=== PATIENT | female | born 1970 | race Caucasian/White ===

== ENCOUNTER 2017-10-02 21:42 | Emergency (ER) | payer BC ==
[~2017-10-02] VITALS: Ht 172.7 cm; Wt 81.7 kg
[2017-10-02] MEDS ORDERED: LEVO-T25 MCG (23:02)
[2017-10-02] MEDS ORDERED: WARF4 PO ×2 (23:23→23:29)
[2017-10-02] MEDS ORDERED: Omeprazole20 M1 (23:23)
[2017-10-02] MEDS ORDERED: ALBU90OI61 INH (23:23)
[2017-10-02] MEDS ORDERED: Dyazide 37.5-21 EACH PO (23:29)
[2018-05-09] MEDS ORDERED: LOSARTAN POTASS50 MG PO (10:17)
[2018-05-09] MEDS ORDERED: XARELTO10 MG PO (10:17)
[2018-05-09] MEDS ORDERED: Synthroid25 MCG PO (10:18)
== END 2017-10-02 23:35 | disposition home or self-care (01) ==
LOC: ER 21:42
DX: M25.461 Effusion, right knee (principal); E03.9 Hypothyroidism, unspecified
CPT/HCPCS: 73562-RT; 99283

== ENCOUNTER → 2018-01-04 | Outpatient (CLI) | payer BC ==
[~2018-01-04] MED LIST: ALBU90OI61 INH; Dyazide 37.5-21 EACH PO; LEVO-T25 MCG; Omeprazole20 M1; WARF4 PO
== END ==
LOC: LAB SHORT 18:59 → LAB 18:59
DX: R19.7 Diarrhea, unspecified (principal)
CPT/HCPCS: 87077; 87086; 87186

== ENCOUNTER 2018-05-16 12:01 | Day surgery (SDC) | payer BC ==
[~2018-05-16] VITALS: Ht 172.7 cm; Wt 84.8 kg
[~2018-05-16 12:01] MED LIST changes: +LOSARTAN POTASS50 MG PO; +Synthroid25 MCG PO; +XARELTO10 MG PO
== END 2018-05-16 16:56 | disposition home or self-care (01) ==
LOC: ORSCSDS 12:01
PROVIDERS: Orthopaedic Surgery
PROC: 0MNN4ZZ Release Right Knee Bursa and Ligament, Percutaneous Endoscopic Approach (ICD-10-PCS; principal; 2018-05-16 13:30)
PROC: 0SBC4ZZ Excision of Right Knee Joint, Percutaneous Endoscopic Approach (ICD-10-PCS; principal; 2018-05-16 13:30)
DX: S83.281A Other tear of lateral meniscus, current injury, right knee, initial encounter (principal); M94.261 Chondromalacia, right knee; I10 Essential (primary) hypertension; E03.9 Hypothyroidism, unspecified; Z79.899 Other long term (current) drug therapy
CPT/HCPCS: J0171; J0690; J1100; J2250; J2405; J2795; J3010; J7120

== ENCOUNTER 2018-08-29 07:41 | Day surgery (SDC) | payer BC ==
[~2018-08-29] VITALS: Ht 172.7 cm; Wt 88.6 kg
== END 2018-08-29 11:09 | disposition home or self-care (01) ==
LOC: ORSCSDS 07:41
PROVIDERS: Orthopaedic Surgery
PROC: 0MNP4ZZ Release Left Knee Bursa and Ligament, Percutaneous Endoscopic Approach (ICD-10-PCS; principal; 2018-08-29 08:45)
DX: M23.92 Unspecified internal derangement of left knee (principal); M22.42 Chondromalacia patellae, left knee; M94.262 Chondromalacia, left knee; I10 Essential (primary) hypertension; E03.9 Hypothyroidism, unspecified; Z79.899 Other long term (current) drug therapy
CPT/HCPCS: J0171; J0690; J1100; J1885; J2405; J2795; J3010; J7120

== ENCOUNTER → 2019-04-18 | Outpatient (CLI) | payer BC | END | disposition home or self-care (01) | LOC: PLD 11:41 → LAB SHORT 11:41 | DX: D22.4 Melanocytic nevi of scalp and neck (principal) | CPT/HCPCS: 88305 ==

== ENCOUNTER 2020-08-13 12:57 | Emergency (ER) | payer BC ==
[~2020-08-13] VITALS: Ht 167.6 cm; Wt 83.9 kg
[2020-08-13 13:20] LABS: Calcium, Ionized (POC) 1.08 mmol/L (1.10-1.46); Chloride (POC) 106 mmol/L (98-108); Creatinine (POC) 0.7 mg/dL (0.6-1.0); Glucose (ISTAT POC) 95 mg/dL (70-99); Potassium (POC) 3.6 mmol/L (3.5-5.5); Sodium (POC) 139 mmol/L (135-148); Total CO2 (POC) 25 mmol/L (21-32)
== END 2020-08-13 14:52 | disposition home or self-care (01) ==
LOC: ER 12:57
PROVIDERS: Emergency Medicine
DX: I47.1 Supraventricular tachycardia (principal); E03.9 Hypothyroidism, unspecified; Z79.01 Long term (current) use of anticoagulants; Z79.899 Other long term (current) drug therapy
CPT/HCPCS: 80047; 85014; 93005; 93010; 96360; 99285-25; J0153; J7030

== ENCOUNTER 2021-12-16 13:28 | Day surgery (SDC) | payer BC ==
[~2021-12-16] VITALS: Ht 172.7 cm; Wt 88.4 kg
[2021-12-16] MEDS ORDERED: KAPSPARGO SPRIN25 MG PO (13:59)
== END 2021-12-16 16:25 | disposition home or self-care (01) ==
LOC: ORSCSDS 13:28
PROVIDERS: Internal Medicine Gastroenterology
PROC: 0DBL8ZX Excision of Transverse Colon, Via Natural or Artificial Opening Endoscopic, Diagnostic (ICD-10-PCS; principal; 2021-12-16 15:15)
PROC: 0DBM8ZX Excision of Descending Colon, Via Natural or Artificial Opening Endoscopic, Diagnostic (ICD-10-PCS; principal; 2021-12-16 15:15)
PROC: 0DBK8ZX Excision of Ascending Colon, Via Natural or Artificial Opening Endoscopic, Diagnostic (ICD-10-PCS; principal; 2021-12-16 15:15)
DX: Z12.11 Encounter for screening for malignant neoplasm of colon (principal); D12.2 Benign neoplasm of ascending colon; D12.4 Benign neoplasm of descending colon; D68.51 Activated protein C resistance; I10 Essential (primary) hypertension; K21.9 Gastro-esophageal reflux disease without esophagitis; Z86.718 Personal history of other venous thrombosis and embolism; Z79.01 Long term (current) use of anticoagulants; E03.9 Hypothyroidism, unspecified; J45.909 Unspecified asthma, uncomplicated; Z79.899 Other long term (current) drug therapy
CPT/HCPCS: 88305; J0330; J0461; J2405; J2704; J7040; J7120

== ENCOUNTER 2022-01-11 06:23 | Day surgery (SDC) | payer BC ==
[~2022-01-11] VITALS: Ht 172.7 cm; Wt 89.8 kg
[~2022-01-11 06:23] MED LIST changes: +KAPSPARGO SPRIN25 MG PO
--- NOTE | 2022-01-11 08:28 | NUR ---
01/11/22 0828 Reny Borden 100MLS OF JOINT COCKTAIL INJECTED AT [facility] BY .
--- NOTE | 2022-01-11 10:20 | NUR ---
01/11/22 1020 NOEMI CREWS RN EXPLAINED TO PT AND ROZ ABOUT TOE TOUCH WEIGHT BEARING. PT AND VERBALIZED UNDERSTANDING, SAID THEY HAVE CRUTCHES AT HOME TO USE. PT DC VIA WHEELCHAIR TO GO HOME WITH [facility]A- BELONGINGS TAKEN OUT WITH [facility]A
== END 2022-01-11 10:20 | disposition home or self-care (01) ==
LOC: ORSCSDS 06:23
PROVIDERS: Orthopaedic Surgery
PROC: 0LMJ0ZZ Reattachment of Right Hip Tendon, Open Approach (ICD-10-PCS; principal; 2022-01-11 07:30)
PROC: 0MBL0ZZ Excision of Right Hip Bursa and Ligament, Open Approach (ICD-10-PCS; principal; 2022-01-11 07:30)
DX: S76.011A Strain of muscle, fascia and tendon of right hip, initial encounter (principal); I10 Essential (primary) hypertension; E03.9 Hypothyroidism, unspecified; K21.9 Gastro-esophageal reflux disease without esophagitis; Z86.718 Personal history of other venous thrombosis and embolism; Z79.01 Long term (current) use of anticoagulants; D68.51 Activated protein C resistance; Z79.899 Other long term (current) drug therapy
CPT/HCPCS: A9270; C1713; J0690; J1100; J1885; J2250; J2370; J2405; J2704; J3010; J7120

== ENCOUNTER → 2022-07-01 | Outpatient (CLI) | payer BC | LOC: PLD 11:59 → LAB SHORT 11:59 | DX: D22.39 Melanocytic nevi of other parts of face (principal); D22.5 Melanocytic nevi of trunk; D22.62 Melanocytic nevi of left upper limb, including shoulder | CPT/HCPCS: 88305 ==

== ENCOUNTER → 2022-07-12 | Outpatient (CLI) | payer BC ==
[2022-07-13 10:43] LABS: Hematocrit 48.5 % (33.0-51.0); Hemoglobin 15.3 g/dL (11.5-16.0); Mean Corpuscular HGB 30.5 pg (26.0-34.0); Mean Corpuscular HGB Conc 31.5 g/dL (31.5-36.5); Mean Corpuscular Volume 97 fL (80-100); Mean Platelet Volume 10.6 fL (9.1-12.4); Platelet Count 307 K/mm3 (150-400); RDW Coefficient Variation 13.1 % (11.7-14.2); RDW Standard Deviation 46.8 fL (35.1-46.3); Red Blood Cell Count 5.02 M/mm3 (3.80-5.20); White Blood Cell Count 6.57 K/mm3 (4.00-11.30)
== END ==
LOC: LAB SHORT 07:46 → LAB 07:46
PROVIDERS: Nurse Practitioner Family
DX: I10 Essential (primary) hypertension (principal); E03.9 Hypothyroidism, unspecified; N95.9 Unspecified menopausal and perimenopausal disorder; E55.9 Vitamin D deficiency, unspecified; R53.83 Other fatigue; R68.82 Decreased libido; Z79.890 Hormone replacement therapy; R87.1 Abnormal level of hormones in specimens from female genital organs; E23.0 Hypopituitarism
CPT/HCPCS: 85027

== ENCOUNTER 2022-11-17 10:27 | Day surgery (SDC) | payer BC ==
[~2022-11-17] VITALS: Ht 172.7 cm; Wt 85.4 kg
[~2022-11-17 10:27] MED LIST changes: +Adipex-P37.5 MG PO; +LIOT5 PO; +PROG100 PO; +RYBELSUS3 MG PO; +TOPROL XL25 MG PO; +VITAMIN D5000 UNIT PO
--- NOTE | 2022-11-17 11:33 | NUR ---
Ambulatory in Day Surgery. History, Chart, Medications and Allergies reviewed before start of procedure.Lungs clear T/O to Auscultation. Patient confirms NPO status and agrees with scheduled surgery. Pre-Op teaching done. Pt verbalizes understanding. Patient States Post-Procedure ride home has been arranged.
--- NOTE | 2022-11-17 16:42 | NUR ---
PATIENT TO SURG 217 POST LAP HYSTERECTOMY. VITAL SIGNS WNL. POST OP VITALS IN PROGRESS. COMPLAINS OF 8/10 ABDOMINAL PAIN. MEDICATED PER EMAR WITH PAIN RELIEF. DENIES N/V. 3 INCISIONS TO ABDOMIN, WNL. NO SIGNS OF BLEEDING. PER PAD IN PLACE. NO SIGNS OF BLEEDING AT THIS TIME. PATIENT EATING JELLO AND ICE CREAM. DRINKING WATER. AT BEDSIDE. WILL CONTINUE TO MONITOR.
--- NOTE | 2022-11-17 17:22 | NUR ---
PATIENT PAIN REDUCED AND CURRENTLY 4/10. UP TO BATHROOM TO VOID WITH SBA. 200ML OUTPUT OF NATE CLEAR URINE. DENIES NAUSEA. EATING ICE CREAM, AND CRACKERS AT THIS TIME. DRINKING WATER. PO PAIN MEDS GIVEN PER EMAR. INCISIONS WNL. NO VAGINAL BLEEDING AT THIS TIME. REMAINS AT BEDSIDE. POST OP VITALS IN PROGRESS AND CONTINUE TO BE STABLE.
--- NOTE | 2022-11-17 20:26 | NUR ---
SHIFT ASSESSMENT: PT PODx0 ROBOTIC LAP HYSTERECTOMY. PER PATIENT, VERY MINIMAL VAGINAL BLEEDING. PAD AND MESH UNDERWEAR CHANGED INDEPENDENTLY. PT REPORTS PAIN IS WELL MANAGED PER EMAR ORDERS WITH ORAL MEDICATION. TOLERATING PO FLUIDS AND FOOD. DENYING N/V. REPORTS INDEPENDENT TO BATHROOM AND IS STEADY ON HER FEET. VSS. EATING, DRINKING, VOIDING. PT HAS BEEN MEDICATED FOR PAIN. REPORTS THAT HER WILL BE HERE TO TRANSPORT HER HOME. X3 LAP SITES C/D/I AT THIS TIME. HEART AND LUNG SOUNDS WNL. REPORTS MINIMAL GAS SENSATION IN STOMACH. PT READY TO DISCHARGE HOME. WILL PRINT OUT PAPERWORK.
--- NOTE | 2022-11-17 20:45 | NUR ---
DISCHARGE: PT WAS DISCHARGED. DC INSTRUCTIONS AND INFO COMPLETED MY CHARGE NURSE. PT TAKEN TO PRIVATE VEHICLE VIA WHEELCHAIR BY IT SECURITY PROJECT MANAGER. PT EATING, DRINKING, VOIDING. DENIES N/V. REPORTS PAIN CONTROL. VERIFIED THAT PRESCRIPTIONS HAVE BEEN FILLED. TO TAKE PT HOME IN PRIVATE VEHICLE.
== END 2022-11-17 20:45 | disposition home or self-care (01) ==
LOC: ORSCMMR 10:27 → ORD 11:00 → ORSCMMR 11:00 → SURS 15:58 → ORSCMMR 20:45 → ORD 11-25 08:30
PROVIDERS: Obstetrics & Gynecology
PROC: 8E0W4CZ Robotic Assisted Procedure of Trunk Region, Percutaneous Endoscopic Approach (ICD-10-PCS; principal; 2022-11-17 11:45)
PROC: 0UT9FZZ Resection of Uterus, Via Natural or Artificial Opening With Percutaneous Endoscopic Assistance (ICD-10-PCS; principal; 2022-11-17 11:45)
PROC: 0UT7FZZ Resection of Bilateral Fallopian Tubes, Via Natural or Artificial Opening With Percutaneous Endoscopic Assistance (ICD-10-PCS; principal; 2022-11-17 11:45)
DX: D25.0 Submucous leiomyoma of uterus (principal); N85.2 Hypertrophy of uterus; N80.03 Adenomyosis of the uterus; D68.2 Hereditary deficiency of other clotting factors; Z86.718 Personal history of other venous thrombosis and embolism; Z79.01 Long term (current) use of anticoagulants; I10 Essential (primary) hypertension; Z79.899 Other long term (current) drug therapy
CPT/HCPCS: 58571; S2900; 36415; 86850; 86900; 86901; 88307; A9270; J0690; J1170; J2250; J2405; J2704; J2710; J2795; J3010; J7120

== ENCOUNTER → 2023-05-26 | Outpatient (CLI) | payer BC | END | disposition home or self-care (01) | LOC: LAB 18:46 → LAB SHORT 18:46 | DX: R30.0 Dysuria (principal) | CPT/HCPCS: 87086 ==

== ENCOUNTER 2024-01-12 18:50 | Emergency (ER) | payer BC ==
[~2024-01-12] VITALS: Ht 172.7 cm; Wt 77.1 kg
[2024-01-12 19:18] LABS: BASOPHILS ABSOLUTE AUTO 0.06 K/mm3 (0.00-0.23); BASOPHILS PERCENT AUTO 1 % (0-2); EOSINOPHILS ABSOLUTE AUTO 0.09 K/mm3 (0.00-0.68); EOSINOPHILS PERCENT AUTO 1 % (0-6); Hematocrit 43.3 % (33.0-51.0); Hemoglobin 14.3 g/dL (11.5-16.0); IMMATURE GRAN ABSOLUTE AUTO 0.03 K/mm3 (0.00-0.10); IMMATURE GRAN PERCENT AUTO 0 % (0-1); LYMPHOCYTES ABSOLUTE AUTO 1.54 K/mm3 (0.84-5.20); LYMPHOCYTES PERCENT AUTO 17 % (21-46); MONOCYTES ABSOLUTE AUTO 0.65 K/mm3 (0.16-1.47); MONOCYTES PERCENT AUTO 7 % (4-13); Mean Corpuscular HGB 31.3 pg (26.0-34.0); Mean Corpuscular Volume 95 fL (80-100); Mean Platelet Volume 9.7 fL (9.1-12.4); NEUTROPHILS ABSOLUTE AUTO 6.88 K/mm3 (1.96-9.15); NEUTROPHILS PERCENT AUTO 75 % (41-73); Platelet Count 230 K/mm3 (150-400); RDW Coefficient Variation 12.4 % (11.7-14.2); RDW Standard Deviation 42.7 fL (35.1-46.3); Red Blood Cell Count 4.57 M/mm3 (3.80-5.20); White Blood Cell Count 9.25 K/mm3 (4.00-11.30)
[2024-01-12 19:40] LABS: Albumin, Blood 3.8 g/dL (3.4-5.0); Albumin/Globulin Ratio 1.1 (0.8-1.8); Bilirubin, Total 0.7 mg/dL (0.1-1.0); Bun/Creatinine Ratio 23.2 (12.0-20.0); Creatinine, Blood 0.56 mg/dL (0.40-1.00); Globulin, Blood 3.5 g/dL (2.2-4.0); Potassium, Blood 3.3 mmol/L (3.5-5.5); Total Protein, Blood 7.3 g/dL (6.4-8.2)
[2024-01-12] MEDS ORDERED: VUMERITY231 MG PO (20:23)
[2024-01-12] MEDS ORDERED: XARELTO20 MG PO (20:24)
[2024-01-12 21:15] VITALS: BP 132/98
== END 2024-01-12 21:17 | disposition home or self-care (01) ==
LOC: ER 18:50
PROVIDERS: Emergency Medicine
DX: R00.2 Palpitations (principal); D68.51 Activated protein C resistance; Z79.899 Other long term (current) drug therapy; E03.9 Hypothyroidism, unspecified
CPT/HCPCS: 80053; 84484; 85025; 85379; 93005; 93010; 99285-25

== ENCOUNTER 2025-04-27 22:29 | Emergency (ER) | payer BC, OTHER ==
[~2025-04-27] VITALS: Ht 172.7 cm; Wt 71.7 kg
[~2025-04-27 22:29] MED LIST changes: +VUMERITY231 MG PO; +XARELTO20 MG PO
[2025-04-27 22:44] VITALS: BP 152/111
== END 2025-04-27 23:00 | disposition home or self-care (01) ==
LOC: ER 22:29
DX: R45.851 Suicidal ideations (principal); F43.9 Reaction to severe stress, unspecified; E03.9 Hypothyroidism, unspecified; D68.51 Activated protein C resistance; Z79.899 Other long term (current) drug therapy; Z79.890 Hormone replacement therapy; Z79.01 Long term (current) use of anticoagulants
CPT/HCPCS: 99284